=== PATIENT | male | born 1990 | race Caucasian/White ===

== ENCOUNTER 2020-02-11 13:51 | Emergency (ER) | payer OTHER ==
[~2020-02-11] VITALS: Ht 175.3 cm; Wt 108.9 kg
[2020-02-11] MEDS ORDERED: IBUP800 PO (15:09)
[2020-02-11] MEDS ORDERED: HYDR1TAB94 PO (15:09)
== END 2020-02-11 15:21 | disposition home or self-care (01) ==
LOC: ER 13:51
DX: S92.354A Nondisplaced fracture of fifth metatarsal bone, right foot, initial encounter for closed fracture (principal); F17.200 Nicotine dependence, unspecified, uncomplicated; W22.8XXA Striking against or struck by other objects, initial encounter
CPT/HCPCS: 73630; 99283-25